=== PATIENT | male | born 1960 | race Two or more races ===

== ENCOUNTER 2024-07-10 23:06 | Emergency (ER) | payer OTHER, MEDICARE, BC ==
[~2024-07-10] VITALS: Ht 172.7 cm; Wt 68.0 kg
--- NOTE | 2024-07-10 23:35 | ED.PDOC ---
Altered Mental Status HPI Comments 64-year-old male who came to ER via EMS for altered level of consciousness. Per EMS, patient has history of Parkinson's disease, was seen by family members laying on the floor. Possible unwitnessed fall. According to family members, patient is A&O 4, however this time patient is unresponsive to verbal stimuli, and with agonal breathing. Saturating 95% on room air, with a blood sugar of 119. Patient is still altered at this time of care. Chief Complaint: ALOC Time Seen by MD: 23:34 Reviewed Notes: Nurses Notes Allergies: Coded Allergies: UNOBTAINABLE (Unverified , 07/10/24) Information Source: Emergency Med Personnel Mode of Arrival: EMS Severity: Unable to Care for Self, Unresponsive Timing: Minutes Duration: Since onset Prehospital treatment: None Quality: Decreased Alertness, Change in Behavior, Confusion Recent: Trauma Past Medical History Past Medical History (Other): Parkinson's disease Surgical History: Pt Confused Family History Family History: Pt Confused Social History Smoker: Unobtainable Alcohol: Pt Confused Drugs: Pt Confused Lives In: Home Unable to Obtain due to: Altered Mental Status, Other (Parkinson's disease) Physical Exam General Appearance: No Apparent Distress, Normal HEENT: Normal ENT Inspection, Pharynx Normal, TMs Normal Neck: Full Range of Motion, Non-Tender, Normal, Normal Inspection Respiratory: Chest Non-Tender, Lungs Clear, No Accessory Muscle Use, No Respiratory Distress, Normal Breath Sounds Cardiovascular: No Edema, No JVD, No Murmur, No Gallop, Normal Peripheral Pulses, Regular Rate/Rhythm Breast Exam: Deferred Gastrointestinal: No Organomegaly, Non Tender, No Pulsatile Mass, Normal Bowel Sounds, Soft Genitalia: Deferred Pelvic: Deferred Rectal: Deferred Extremities: No calf tenderness, Normal capillary refill, Normal inspection, Normal range of motion, Non-tender, No pedal edema Musculoskeletal : Apperance: Normal Neurologic: Alert, punch finisher II-XII nml as Tested, No Motor Deficits, Normal Affect, Normal Mood, No Sensory Deficits Cerebellar Function: Normal Reflexes: Normal Skin: Dry, Normal Color, Warm Lymphatic: No Adenopathy Was a procedure done? Was a procedure done?: No Differential Diagnosis (ALOC) Differential Diagnosis: Dehydration, Encephalopathy, Other (Parkinson's disease) X-Ray, Labs, Meds, VS Vital Signs Date Time Temp Pulse Resp B/P (MAP) Pulse Ox O2 Delivery O2 Flow Rate FiO2 07/10/24 23:57 71 13 97 Simple Mask* 6 50 07/10/24 23:50 71 13 119/69 (86) 91 07/10/24 23:16 72 07/10/24 23:15 97.8 67 8 112/67 (82) 97 Lab Test 07/11/24 00:14 07/10/24 23:15 07/10/24 23:13 Range/Units Troponin I High Sensitivity < 3 L < 3 L </=54 ng/L Blood Gas Specimen Type Arterial Blood Gas Sample Site Left brachial Blood Gas Patient Temperature 37.0 Arterial Blood Date Drawn [id number] Arterial Blood pH 7.404 7.350-7.450 Arterial Blood Partial Pressure CO2 49.8 H 35.0-48.0 mmHg Arterial Blood Partial Pressure O2 65.0 L 83.0-108.0 mmHg Arterial Blood HCO3 30.4 H 21.0-28.0 mmol/L Arterial Blood Oxygen Saturation 92.1 L 94.0-98.0 % Arterial Blood Base Excess 4.7 H -2.0-3.0 mmol/L Arterial Blood Oxyhemoglobin 91.1 L 94.0-98.0 % Arterial Blood Carboxyhemoglobin 0.7 0.5-1.5 % Arterial Blood Methemoglobin 0.4 0.0-1.5 % Marco Test Yes Blood Gas Total Hemoglobin 12.60 L 13.5-17.5 g/dL Blood Gas Modality Room air FiO2 % 21.0 White Blood Count 6.8 4.4-10.8 10^3/uL Red Blood Count 3.83 L 4.5-5.90 10^6/uL Hemoglobin 12.1 L 13.5-17.5 g/dL Hematocrit 35.8 L 41.0-53.0 % Mean Corpuscular Volume 93.5 80.0-100.0 fL Mean Corpuscular Hemoglobin 31.5 28.0-32.0 pg Mean Corpuscular Hemoglobin Concent 33.7 32.0-36.0 g/dL Red Cell Distribution Width 15.2 H 11.8-14.3 % Platelet Count 215 140-450 10^3/uL Mean Platelet Volume 8.2 6.9-10.8 fL Neutrophils (%) (Auto) 67.7 37.0-80.0 % Lymphocytes (%) (Auto) 23.3 10.0-50.0 % Monocytes (%) (Auto) 6.9 0.0-12.0 % Eosinophils (%) (Auto) 1.8 0.0-7.0 % Basophils (%) (Auto) 0.3 0.0-2.0 % Neutrophils # (Auto) 4.6 1.6-8.6 10 ^3/uL Lymphocytes # (Auto) 1.6 0.4-5.4 10 ^3/uL Monocytes # (Auto) 0.5 0-1.3 10 ^3/uL Eosinophils # (Auto) 0.1 0-0.8 10 ^3/uL Basophils # (Auto) 0 0-0.2 10 ^3/uL Nucleated Red Blood Cells 0.0 % Sodium Level 140 136-145 mmol/L Potassium Level 3.4 L 3.5-5.1 mmol/L Chloride Level 102 98-107 mmol/L Carbon Dioxide Level 33 H 20-31 mmol/L Anion Gap 5 5-15 Blood Urea Nitrogen 14 9-23 mg/dL Creatinine 0.67 L 0.700-1.30 mg/dL Glomerular Filtration Rate Calc 104 >90 mL/min BUN/Creatinine Ratio 20.9 H 10.0-20.0 Serum Glucose 101 74-106 mg/dL Lactic Acid Level 0.9 0.4-2.0 mmol/L Calcium Level 9.1 8.7-10.4 mg/dL PROCEDURE(s): HWOCT - HEAD WITHOUT CONTRAST FINDINGS: Mild cerebral volume loss with concordant prominence of the subarachnoid spaces and ventricles. Mild patchy low attenuation throughout the cerebral white matter consistent with nonspecific white matter disease. Cavum septum pellucidum. There is no midline shift or mass effect. The lynch white matter interfaces are maintained. The basal cisterns are patent. There is no evidence of acute intracranial hemorrhage or extra-axial fluid collection. The mastoid air cells and visualized paranasal sinuses are well-aerated aside from a mucous retention cyst or polyp in the right sphenoid sinus IMPRESSION: 1. No acute intracranial abnormality. 2. Mild cerebral volume loss and mild chronic microvascular ischemic change. Time of 1ST Reevaluation: 23:30 Reevaluation 1ST: Unchanged Patient Education/Counseling: Other (Unresponsive to verbal stimuli), Pt Unresponsive Family Education/Counseling: No Family Present Departure 1 Departure Time of Disposition: 02:55 (Patient presented with altered mental status today. Data: 1. I ordered and reviewed the result of at least 3 labs including a CBC, BMP, and troponin. 2. I independently interpreted the following tests: EKG which shows a sinus arrhythmia and a chest x-ray which shows benign chest and a CT head which shows unchanged brain.Risk:This patient has a high risk of morbidity due to further diagnostic testing or treatment and may suffer from an acute cardiac, neurologic, or infectious disorder. Rationale: Discussed with family and family reports patient is on hospice and they would like to take patient home at this time.) Impression: Primary Impression: Fall Qualified Codes: W19.XXXA - Unspecified fall, initial encounter Additional Impression: Altered mental status Qualified Codes: R41.0 - Disorientation, unspecified Disposition: HOME / SELF CARE / HOMELESS Condition: Stable Additional Instructions: Your workup today was benign. You can take Tylenol or Motrin as needed for pain. You should follow up with your regular doctor within 1 week. You should stay well rested and well hydrated. If your symptoms worsen or you have any other concerns please return to the emergency room. Discharged With: Puppet [employer] Critical Care Note Critical Care Time?: Yes (35 min-critical care time only) Stability Stability form required: No Heart Score Heart Score: Heart Score Response (Comments) Value History N/A 0 EKG N/A 0 Age N/A 0 Risk Factors N/A 0 Troponin N/A 0 Total 0 I personally scribed for WALT MONTE MD ([email or web address]) on 07/10/24 at 23:35. Electronically submitted by Avi Reed ([email or web address]). I personally scribed for WALT MONTE MD ([email or web address]) on 07/11/24 at 01:20. Electronically submitted by Avi Reed ([email or web address]). WALT MONTE MD Jul 10, 2024 23:35
[2024-07-10 23:38] LABS: Base Excess 4.7 mmol/L (-2.0-3.0)
[2024-07-10 23:41] LABS: Anion Gap 5 (5-15); Chloride 102 mmol/L (98-107); Sodium 140 mmol/L (136-145)
[2024-07-10 23:42] LABS: Calcium 9.1 mg/dL (8.7-10.4)
[2024-07-10 23:47] LABS: BUN/Creatinine Ratio 20.9 (10.0-20.0); Blood Urea Nitrogen 14 mg/dL (9-23); Glucose 101 mg/dL (74-106)
[2024-07-10 23:55] LABS: Carbon Dioxide 33 mmol/L (20-31); Potassium 3.4 mmol/L (3.5-5.1)
[2024-07-10 23:57] VITALS: PULSE 71; RESP 13; O2SAT 97
[2024-07-11 00:02] LABS: Basophils # (auto) 0 10 ^3/uL (0-0.2); Basophils % (auto) 0.3 % (0.0-2.0); Eosinophils # (auto) 0.1 10 ^3/uL (0-0.8); Eosinophils % (auto) 1.8 % (0.0-7.0); Hematocrit 35.8 % (41.0-53.0); Hemoglobin 12.1 g/dL (13.5-17.5); Lymphocytes # (auto) 1.6 10 ^3/uL (0.4-5.4); Lymphocytes % (auto) 23.3 % (10.0-50.0); Mean Corpuscular Hemoglobin 31.5 pg (28.0-32.0); Mean Corpuscular Hgb Conc. 33.7 g/dL (32.0-36.0); Mean Corpuscular Volume 93.5 fL (80.0-100.0); Monocytes # (auto) 0.5 10 ^3/uL (0-1.3); Monocytes % (auto) 6.9 % (0.0-12.0); Neutrophils # (auto) 4.6 10 ^3/uL (1.6-8.6); Neutrophils % (auto) 67.7 % (37.0-80.0); Platelet Count (auto) 215 10^3/uL (140-450); Red Blood Cells 3.83 10^6/uL (4.5-5.90); Red Cell Distribution Width 15.2 % (11.8-14.3); White Blood Cell 6.8 10^3/uL (4.4-10.8)
--- NOTE | 2024-07-11 01:17 | DVH ---
CLINICAL HISTORY: ams TECHNIQUE: Helical imaging carried out from skull base to vertex without intravenous contrast. This e xam was performed according to our departmental dose optimization program. Up-to-date CT equipment an d radiation dose reduction techniques are utilized as appropriate. CTDIVol: [CTDIvol] mGy DLP: mGy-cm WID: COMPARISON: None FINDINGS: Mild cerebral volume loss with concordant prominence of the subarachnoid spaces and ventricles. Mild patchy low attenuation throughout the cerebral white matter consistent with nonspecific white matter disease. Cavum septum pellucidum. There is no midline shift or mass effect. The lynch white matter in terfaces are maintained. The basal cisterns are patent. There is no evidence of acute intracranial he morrhage or extra-axial fluid collection. The mastoid air cells and visualized paranasal sinuses are well-aerated aside from a mucous retention cyst or polyp in the right sphenoid sinus IMPRESSION: 1. No acute intracranial abnormality. 2. Mild cerebral volume loss and mild chronic microvascular ischemic change.
--- NOTE | 2024-07-11 02:31 | DVH ---
EXAM: XY CHEST PORTABLE CLINICAL HISTORY: ams TECHNIQUE: Single AP view of the chest WID: COMPARISON: None FINDINGS: Lines and tubes: None Chest: The heart size and pulmonary vasculature is within normal limits. No pleural effusion or pneumothorax. Small opacity in the medial right lung base The osseous structures are grossly intact. Multilevel thoracic spondylosis. IMPRESSION: Small opacity in the medial right lung base which could be atelectasis or pneumonia.
[2024-07-11 03:23] VITALS: BP 97/67; PULSE 82; RESP 13; O2SAT 98
--- NOTE | 2024-07-13 09:03 | ECG ---
[facility] Test Date: 2024-07-10 Test Time: 23:16:33 Pat Name: TAWANA WEATHERS Department: er Room: Gender: M [employer]: er : 1960 Requested By: WALT MONTE Order Number: [id number] Reading MD: Measurements Intervals [place] Rate: 72 P: 0 DC: 150 QRS: 49 QRSD: 112 T: 8 QT: 412 QTc: 451 Interpretive Statements Sinus rhythm Borderline intraventricular conduction delay Borderline T wave abnormalities Please click the below link to view image of tracing.
== END 2024-07-11 02:49 | disposition home or self-care (01) ==
LOC: ER 23:06 → EDBD 23:06 → ER 07-11 02:49
DX: R41.82 Altered mental status, unspecified (principal); G20.A1 Parkinson's disease without dyskinesia, without mention of fluctuations; W18.39XA Other fall on same level, initial encounter; Y93.89 Activity, other specified; Y92.89 Other specified places as the place of occurrence of the external cause; Y99.8 Other external cause status
CPT/HCPCS: 36415; 36600; 70450; 71045; 80048; 81001; 82805; 83605; 84484; 85025; 93005